=== PATIENT | female | born 1930 | race Asian ===

== ENCOUNTER 2018-08-31 18:27 | Inpatient (IN) | payer OTHER, MEDICAID ==
[~2018-08-31] VITALS: Ht 154.9 cm; Wt 61.5 kg
[~2018-08-31 18:27] MED LIST: AMLO5TAB4 PO; CALC-939 PO; DONE10TA44 PO; FURO-150 PO; MEGE40TA PO; MELO15TA13 PO; MEMA10TA PO; MEMA7CAP PO; NEU100 PO; POTA10TA15 PO; RIVA15TA PO; THIO10TA PO
--- NOTE | 2018-08-31 18:27 | NUR ---
Arrived via [facility] for altered mental status, with black diarrhea for 3 days. Patient has been unable to swallow x 2 days. Patient was worked u[p for this two days ago and was discharged home today. Patient is verbal and confused at baseline and is now non-verbal. Placed in room 1. Placed on management specialist, blood pressure machine and pulse oximeter. To gown for exam. Side rails up. Report given to Christopher NATHAN.
[2018-08-31 18:30] VITALS: BP_SYST 125
[2018-08-31] MEDS ORDERED: NS 1000 ML IV.SOLN IV ONE (18:30)
[2018-08-31] MEDS ORDERED: NACL 0.9% 1,000 ML IV ONE (18:30)
[2018-08-31] MEDS ORDERED: methylPREDNISolone SOD SUCC/PF 62.5 MG/ML VIAL IVP ONE (19:00)
[2018-08-31] MEDS ORDERED: ALBUTEROL SULFATE 0.083% 2.5 MG/3 ML VIAL.NEB IH ONE (19:00)
[2018-08-31] MEDS ORDERED: IPRATROPIUM BROM 0.5 MG/2.5 ML VIAL.NEB (ATROVENT) IH ONE (19:00)
[2018-08-31] MEDS ORDERED: cefTRIAXone 1 GM IVPB PREMIX 50 ML IV ONE (19:00)
--- NOTE | 2018-08-31 19:20 | NUR ---
Dr. Zaman bedside for Pt eval
--- NOTE | 2018-08-31 19:25 | NUR ---
Pt taken to Radiology, in stable condition. According to family still altered from Pt's baseline
--- NOTE | 2018-08-31 19:45 | NUR ---
Pt back from Radiology, well tolerated
[2018-08-31 20:24] LABS: BASOPHILS % (AUTO) 0.3 % (0.0-2.0); EOSINOPHILS # (AUTO) 0.1 K/uL (0.0-0.4); EOSINOPHILS % (AUTO) 0.7 % (0.0-4.0); LYMPHOCYTES # (AUTO) 2.8 K/uL (1.0-5.5); LYMPHOCYTES % (AUTO) 35.2 % (20.5-51.5); MEAN CORPUSCULAR HEMOGLOBIN 33 pg (27-31); MEAN CORPUSCULAR HGB CONC 33 % (32-36); MEAN CORPUSCULAR VOLUME 100 fL (79.0-98.0); MONOCYTES # (AUTO) 0.4 K/uL (0.0-1.0); NEUTROPHILS # (AUTO) 4.7 K/uL (1.8-7.7); NEUTROPHILS % (AUTO) 58.8 % (40.0-70.0); PLATELET COUNT (AUTO) 183 K/uL (130-430); RED CELL DISTRIBUTION WIDTH 14.6 % (9.0-15.0)
--- NOTE | 2018-08-31 20:30 | NUR ---
Pt VSS, no s/s of acute distress. Resting on gurney with rails up
[2018-08-31 20:37] LABS: HEMATOCRIT 17.4 % (36-48); RED BLOOD CELL COUNT(AUTO) 1.73 MIL/uL (4.2-6.2)
[2018-08-31 20:48] LABS: ANION GAP 3 (5-15); CALCIUM 8.8 mg/dL (8.4-11.0); CHLORIDE 112 mmol/L (98-107); GLUCOSE 112 mg/dL (70-99); SODIUM SERUM 141 mmol/L (136-145); UREA NITROGEN, BLOOD 40 mg/dL (8-21)
[2018-08-31 20:52] LABS: ALANINE AMINOTRANSFERASE 13 U/L (12-78); ALBUMIN 2.7 g/dL (3.4-4.8); AMYLASE 49 U/L (0-100); ASPARTATE AMINOTRANSFERASE 15 U/L (10-37); LIPASE 97 U/L (73-393); TOTAL BILIRUBIN 0.5 mg/dL (0.0-1.0)
[2018-08-31 21:00] LABS: PROTHROMBIN TIME 9.8 SECS (9.5-12.5)
[2018-08-31 21:05] LABS: ALCOHOL, BLOOD < 3 mg/dL (<10)
--- NOTE | 2018-08-31 21:30 | NUR ---
2 units PRBC ordered with Blood bank. Hgb 5.8, Dr. Zaman aware
--- NOTE | 2018-08-31 22:15 | NUR ---
Pt's family states "Pt is more awake than before"
[2018-08-31] MEDS ORDERED: PANTOPRAZOLE SODIUM 80 MG in NS 100 ML IV ONE (23:00)
[2018-08-31] MEDS ORDERED: PANTOPRAZOLE SODIUM 40 MG/VIAL (PROTONIX) ONE (23:16)
--- NOTE | 2018-08-31 23:18 | NUR ---
Patient will be admitted to care of Dr. Cristobal. Admitted to Telemetry unit. Will go to room 133A. Belongings list completed. Summary report printed. Report will be given at bedside.
--- NOTE | 2018-08-31 23:18 | NUR ---
ADMISSION NOTE Received patient from ER via [facility], received report from JAC RIVAS. Patient admitted with diagnosis of LOWER GI BLEED. Patient and family oriented to hospital routine, call light, toileting and safety-patient verbalized understanding.
--- NOTE | 2018-08-31 23:18 | NUR ---
Transfer to Telemetry via ACLS protocol. Licensed nurse present. IV present no signs or symptoms of infiltration.
[2018-08-31 23:27] VITALS: BP_SYST 142
[2018-08-31] MEDS ORDERED: KCL 20 mEq in D5/0.45NS 1000mL 1,000 ML IV ONE (23:48)
[2018-09-01] VITALS (11 sets, daily range): BP systolic 122–151
--- NOTE | 2018-09-01 | NUR ---
IV PLACEMENT: # 20 gauge angiocath placed to right forearm. Use of asceptic technique. Opsite placed over site. Blood return noted. Flushed with normal saline. No evidence of infiltration noted. Patient tolerated well. Will initiate blood transfusion via this IV site.
--- NOTE | 2018-09-01 00:10 | NUR ---
BT INITIATION: Consent signed per family agreeing to administration of blood. Blood has been type and crossmatched. Blood sent from blood bank. Information on unit of blood checked against patient wristband at bedside by two nurses. All information matches. Patient or responsible constitution party informed of potential complications associated with blood transfusion. Informed of possible transfusion reaction symptoms. Aware of need to notify nurse at once of itching, shortness of breath, flushing, feeling of impending doom, or other symptoms not previously present. Vital signs taken within 5 minutes prior to initiation of transfusion. RN will remain with patient for first 15 minutes of transfusion at which time vital signs will be re-assessed.
[2018-09-01] MEDS: KCL 20 mEq in D5/0.45NS 1000mL 1,000 ML IV SCH ×3 (00:43→23:22)
--- NOTE | 2018-09-01 01:45 | NUR ---
IV PLACEMENT: # 22 gauge angiocath placed to left hand. Use of asceptic technique. Opsite placed over site. Blood return noted. Flushed with normal saline. No evidence of infiltration noted. Patient tolerated well. Will initiate D5 1/2 + KCL 20 MEQ as ordered via this IV site.
--- NOTE | 2018-09-01 02:50 | NUR ---
BT INITIATION (2nd of 2 units): Consent signed per family agreeing to administration of blood. Blood has been type and crossmatched. Blood sent from blood bank. Information on unit of blood checked against patient wristband at bedside by two nurses. All information matches. Patient or responsible libertarian informed of potential complications associated with blood transfusion. Informed of possible transfusion reaction symptoms. Aware of need to notify nurse at once of itching, shortness of breath, flushing, feeling of impending doom, or other symptoms not previously present. Vital signs taken within 5 minutes prior to initiation of transfusion. RN will remain with patient for first 15 minutes of transfusion at which time vital signs will be re-assessed.
--- NOTE | 2018-09-01 05:07 | NUR ---
BT complete (2nd of 2 units): Blood transfusion completed. Vitals WNL. IV site flushed with NS, resumed IVF via right forearm IV site. Will continue to monitor.
--- NOTE | 2018-09-01 05:21 | NUR ---
CONSULTATION PAGED/CALLED Reason for Consultation: LOWER GI BLEED Person Who was Notified: HUGH Consulting Physician: DR. MONTALVO; PROCESSING REP- DR. BOCANEGRA Poll Clerk Specialty: GI Ordering Physician: DR. MANZANARES
--- NOTE | 2018-09-01 06:04 | NUR ---
Closing note: Patient is resting in bed, no distress. Granddaughter Kiana at bedside. IV fluids infusing well to right forearm IV site. All needs met. Safety and fall precautions observed. Will endorse to trinh NATHAN.
--- NOTE | 2018-09-01 07:08 | NUR ---
Nutrition Update Ifeanyi Scale 14 noted. Pt admitted for Lower Gastrointestinal Bleed Diet: Clear liquid BMI: 28 kg/m2 RD to follow per nutrition care standards.
--- NOTE | 2018-09-01 08:00 | NUR ---
initial notes rec patient asleep but arousble to stimuli. family members at bedside round the clock. resp easy and unlabored. no sob noted. bed to the lowest position and side rails up and locked. call light within reached, family at bedside.
[2018-09-01] MEDS: PANTOPRAZOLE SODIUM 40 MG/VIAL (PROTONIX) IVP SCH ×2 (08:42→20:52)
[2018-09-01 09:14] LABS: BASOPHILS % (AUTO) 0.1 % (0.0-2.0); HEMATOCRIT 27.8 % (36-48); HEMOGLOBIN 9.2 g/dL (12.0-16.0); LYMPHOCYTES # (AUTO) 0.8 K/uL (1.0-5.5); LYMPHOCYTES % (AUTO) 10.3 % (20.5-51.5); MEAN CORPUSCULAR HEMOGLOBIN 32 pg (27-31); MEAN CORPUSCULAR HGB CONC 33 % (32-36); MONOCYTES # (AUTO) 0.1 K/uL (0.0-1.0); MONOCYTES % (AUTO) 0.9 % (1.7-9.3); NEUTROPHILS # (AUTO) 6.8 K/uL (1.8-7.7); NEUTROPHILS % (AUTO) 88.7 % (40.0-70.0); PLATELET COUNT (AUTO) 162 K/uL (130-430); RED BLOOD CELL COUNT(AUTO) 2.92 MIL/uL (4.2-6.2); RED CELL DISTRIBUTION WIDTH 16.2 % (9.0-15.0); WHITE BLOOD COUNT (AUTO) 7.6 K/uL (4.8-10.8)
[2018-09-01 09:18] LABS: MEAN CORPUSCULAR VOLUME 95 fL (79.0-98.0)
[2018-09-01 09:33] LABS: ALANINE AMINOTRANSFERASE 16 U/L (12-78); ALBUMIN 2.4 g/dL (3.4-4.8); ANION GAP 10 (5-15); ASPARTATE AMINOTRANSFERASE 15 U/L (10-37); CHLORIDE 112 mmol/L (98-107); CREATININE 1.45 mg/dL (0.55-1.30); GLUCOSE 166 mg/dL (70-99); POTASSIUM 4.6 mmol/L (3.5-5.1); SODIUM SERUM 145 mmol/L (136-145); TOTAL BILIRUBIN 0.6 mg/dL (0.0-1.0); UREA NITROGEN, BLOOD 31 mg/dL (8-21)
[2018-09-01 10:48] LABS: HEMOGLOBIN 5.8 g/dL (12.0-16.0)
--- NOTE | 2018-09-01 13:55 | NUR ---
rounds seen by dr peters at bedside . no sob noted. alec at bedside.
--- NOTE | 2018-09-01 14:00 | NUR ---
rounds seen by dr sutherland and with orders. sleeps at intervals.
[2018-09-01] MEDS ORDERED: LevALBUTEROL HCL 1.25 MG/0.5 ML *CONC.* VIAL.NEB (XOPENEX CONC.) INH PRN (14:45)
[2018-09-01] MEDS: LevALBUTEROL HCL 1.25 MG/0.5 ML *CONC.* VIAL.NEB (XOPENEX CONC.) INH SCH ×2 (15:00→23:08)
--- NOTE | 2018-09-01 18:39 | NUR ---
closing notes daughter at bedside and signed the consent for egd in am. explained re npo post midnight. no bleeding noted. no sob noted. sleeps at intervals. bed to the lowest positiona nd side rails up and locked.
--- NOTE | 2018-09-01 19:10 | NUR ---
OPENING NOTES Bedside report received from dayshift nurse. Patient received lying in bed, eyes closed, appears to be asleep. No s/s of acute distress noted. Breathing even and unlabored. IV site patent, no signs of infiltration or infection noted. IVF not infusing at this time. Patient's two sons at bedside. Call light with patient. SCDs attached and operating. Bed alarm on. Will continue to monitor.
--- NOTE | 2018-09-01 21:00 | NUR ---
INCONTINENT CARE/ BED BATH [employer] EXCHANGE REPAIRER conducting incontinent care and bed bath at this time, per family members request. Patient tolerating procedure well. No signs of discomfort noted. Chest rise and fall even bilaterally. Call light with patient. Will continue to monitor.
--- NOTE | 2018-09-01 23:00 | NUR ---
ROUNDS/NPO Patient in bed awake. Patient daughter is at bedside. Patient and family member reminded that the patient will be NPO at midnight. Family member, verbalized understanding. No signs of discomfort noted at this time. Chest rise and fall even bilaterally. IVF infusing well. Call light with patient. Bed alarm on. Will continue to monitor.
--- NOTE | 2018-09-02 01:00 | NUR ---
ROUNDS Patient in bed sleeping at this time. No signs of discomfort noted. Chest rise and fall even bilaterally. IVF infusing well. Call light with patient. Bed alarm on. Will continue to monitor.
--- NOTE | 2018-09-02 03:00 | NUR ---
ROUNDS Patient in bed sleeping. No s/s of acute distress noted. Breathing even and unlabored. IVF infusing well. Call light with patient. Bed alarm on. Will continue to monitor.
[2018-09-02 04:50] VITALS: BP_SYST 132
--- NOTE | 2018-09-02 05:00 | NUR ---
ROUNDS Patient in bed sleeping comfortably. No signs of discomfort noted. Chest rise and fall even bilaterally. IVF infusing well. Call light with patient. Will continue to monitor.
--- NOTE | 2018-09-02 06:19 | NUR ---
CLOSING NOTES Patient in bed sleeping. No s/s of acute distress noted. Breathing is even and unlabored. IVF infusing well. IV site patent, no signs of infiltration or infection noted. SCDs attached and operating. HOB slightly raised. No active bleeding noted. Skin warm and dry to touch. All needs met throughout shift. Fall and safety precautions maintained throughout shift. Will continue to monitor until patient care is endorsed to oncoming dayshift nurse.
[2018-09-02] MEDS: LevALBUTEROL HCL 1.25 MG/0.5 ML *CONC.* VIAL.NEB (XOPENEX CONC.) INH SCH ×3 (07:00→23:01)
[2018-09-02] MEDS ORDERED: MEPERIDINE HCL/PF 100 MG/ML AMP ONE (07:06)
[2018-09-02] MEDS: MIDAZOLAM HCL 5 MG/5 ML VIAL ONE ×2 (07:32→07:34)
[2018-09-02] MEDS ORDERED: SIMETHICONE 40 MG/0.6 ML ML ONE (07:52)
[2018-09-02] MEDS: PANTOPRAZOLE SODIUM 40 MG/VIAL (PROTONIX) IVP SCH ×2 (09:06→21:48)
[2018-09-02 09:19] LABS: BASOPHILS % (AUTO) 0.3 % (0.0-2.0); EOSINOPHILS # (AUTO) 0.1 K/uL (0.0-0.4); EOSINOPHILS % (AUTO) 1.1 % (0.0-4.0); HEMOGLOBIN 8.3 g/dL (12.0-16.0); LYMPHOCYTES # (AUTO) 1.1 K/uL (1.0-5.5); LYMPHOCYTES % (AUTO) 13.8 % (20.5-51.5); MEAN CORPUSCULAR HEMOGLOBIN 32 pg (27-31); MEAN CORPUSCULAR HGB CONC 33 % (32-36); MEAN CORPUSCULAR VOLUME 97 fL (79.0-98.0); MONOCYTES # (AUTO) 0.5 K/uL (0.0-1.0); MONOCYTES % (AUTO) 6.1 % (1.7-9.3); NEUTROPHILS # (AUTO) 6.5 K/uL (1.8-7.7); NEUTROPHILS % (AUTO) 78.7 % (40.0-70.0); PLATELET COUNT (AUTO) 170 K/uL (130-430); RED BLOOD CELL COUNT(AUTO) 2.59 MIL/uL (4.2-6.2); RED CELL DISTRIBUTION WIDTH 16.8 % (9.0-15.0); WHITE BLOOD COUNT (AUTO) 8.3 K/uL (4.8-10.8)
--- NOTE | 2018-09-02 09:30 | NUR ---
initial notes pt back from gi lab. asleep but arousable to stimuli. ivf infusing well on the r forearm. no infiltration noted. resp easy and unlabored. no sob noted. bed to the lowest position and side rails up and locked. call light within reached and daughter at bedside with patient.
[2018-09-02 09:40] LABS: ALANINE AMINOTRANSFERASE 15 U/L (12-78); ALBUMIN 2.3 g/dL (3.4-4.8); ANION GAP 7 (5-15); ASPARTATE AMINOTRANSFERASE 12 U/L (10-37); CALCIUM 7.7 mg/dL (8.4-11.0); CHLORIDE 113 mmol/L (98-107); CREATININE 1.24 mg/dL (0.55-1.30); GLUCOSE 103 mg/dL (70-99); POTASSIUM 3.8 mmol/L (3.5-5.1); SODIUM SERUM 145 mmol/L (136-145); TOTAL BILIRUBIN 0.7 mg/dL (0.0-1.0); UREA NITROGEN, BLOOD 21 mg/dL (8-21)
[2018-09-02 12:45] VITALS: BP_SYST 124
--- NOTE | 2018-09-02 15:12 | NUR ---
Dietitian Recommendations * Recommend 2 gm Na, mechanical soft diet w/ Ensure Enlive BID (ONS provides an additional 700 kcal/day and 40 gm protein/day) LP, RD Please refer to Nutrition Assessment for details.
[2018-09-02 16:39] VITALS: BP_SYST 126
--- NOTE | 2018-09-02 19:40 | NUR ---
OPENING NOTE RECEIVED CARE OF PT. PT IS RESTING IN BED WITH FAMILY AT BEDSIDE. NO S/S OF ACUTE DISTRESS, BREATHING IS UNLABORED TO ROOM AIR. PT AND PT'S FAMILY ORIENTED TO USE OF THE CALL LIGHT AND ENCOURAGED TO CALL FOR ANY ASSISTANCE. SAFETY PRECAUTIONS ARE IN PLACE: BED IS LOCKED IN LOWEST POSITION, CALL LIGHT IS WITH PT, SIDE RAILS UP X2, BED ALARM ON, CLOSE TO NURSES STATION. WILL MONITOR.
[2018-09-02 20:00] VITALS: BP_SYST 149
--- NOTE | 2018-09-02 21:48 | NUR ---
SCHEDULED PROTONIX PT GIVEN SCHEDULED PROTONIX VIA IVP. IV IS PATENT AND FLUSHES WELL, NO S/S OF INFILTRATION AT IV SITE. MEDICATION ACTION AND POTENTIAL SIDE EFFECTS EXPLAINED TO PT. SAFETY PRECAUTIONS MAINTAINED. WILL MONITOR.
--- NOTE | 2018-09-02 22:25 | NUR ---
INCONTINENCE CARE PT INCONTINENT OF URINE. PT CLEANED AND PROVIDED WITH FRESH LINENS. PT REPOSITIONED WITH PILLOW SUPPORT. PT TOLERATED WELL. NO S/S OF DISTRESS. SAFETY MAINTAINED. WILL MONITOR.
--- NOTE | 2018-09-03 00:45 | NUR ---
CLEANED/REPOSITIONED PT INCONTINENT OF URINE. PT CLEANED AND REPOSITIONED WITH HELP FROM JAKE VIEYRA. PT TOLERATED WELL, BREATHING IS UNLABORED TO ROOM AIR. NO S/S OF ACUTE DISTRESS NOTED. SAFETY PRECAUTIONS REMAIN IN PLACE. WILL MONITOR.
[2018-09-03 02:31] VITALS: BP_SYST 146
--- NOTE | 2018-09-03 02:55 | NUR ---
RN ROUNDS: PT RESTING IN BED WITH EYES CLOSED. VISIBLE SYMMETRICAL RISE AND FALL OF CHEST, BREATHING IS UNLABORED TO ROOM AIR. PT'S DAUGHTER IS AT BEDSIDE. NO S/S OF ACUTE DISTRESS. SAFETY PRECAUTIONS ARE IN PLACE. WILL MONITOR.
--- NOTE | 2018-09-03 04:30 | NUR ---
RN ROUNDS: PT RESTING IN BED WITH EYES CLOSED, WITH HER DAUGHTER AT BEDSIDE . VISIBLE SYMMETRICAL RISE AND FALL OF CHEST, BREATHING IS EVEN AND EFFORTLESS TO ROOM AIR.NO S/S OF ACUTE DISTRESS, NO SOB NOTED. SAFETY PRECAUTIONS ARE IN PLACE, CALL LIGHT IS WITH PT. WILL MONITOR.
--- NOTE | 2018-09-03 06:21 | NUR ---
CLOSING NOTE PT RESTING IN BED, IN NO ACUTE DISTRESS, PT SMILING WHEN SPOKEN TO. PT'S DAUGHTER IS AT BEDSIDE. INCONTINENCE CARE RENDERED WITH THE ASSISTANCE OF JAKE VIEYRA, AND PT WAS REPOSITIONED. BREATHING IS UNLABORED TO ROOM AIR. SAFETY PRECAUTIONS MAINTAINED. ALL NEEDS MET DURING SHIFT. WILL CONTINUE TO MONITOR UNTIL PT CARE IS ENDORSED TO DAY SHIFT RN.
--- NOTE | 2018-09-03 07:30 | NUR ---
Opening note Patient resting in bed, A/O x 2, no complaints of pain. No SOB. No nausea, no vomiting noted. IV site patent, and intact. No bleeding noted. On aspiration, and safety precautions, HOB kept elevated, bed alarm on, bed in lowest position, call light within reach. Patient in stable condition. Will continue to monitor.
[2018-09-03] MEDS: LevALBUTEROL HCL 1.25 MG/0.5 ML *CONC.* VIAL.NEB (XOPENEX CONC.) INH SCH ×2 (07:40→15:54)
[2018-09-03 08:31] VITALS: BP_SYST 165
[2018-09-03 09:21] LABS: BASOPHILS % (AUTO) 0.5 % (0.0-2.0); EOSINOPHILS # (AUTO) 0.1 K/uL (0.0-0.4); EOSINOPHILS % (AUTO) 1.2 % (0.0-4.0); HEMATOCRIT 30.7 % (36-48); HEMOGLOBIN 10.2 g/dL (12.0-16.0); LYMPHOCYTES # (AUTO) 1.9 K/uL (1.0-5.5); LYMPHOCYTES % (AUTO) 20.2 % (20.5-51.5); MEAN CORPUSCULAR HEMOGLOBIN 32 pg (27-31); MEAN CORPUSCULAR HGB CONC 33 % (32-36); MEAN CORPUSCULAR VOLUME 97 fL (79.0-98.0); MONOCYTES # (AUTO) 0.5 K/uL (0.0-1.0); MONOCYTES % (AUTO) 5.5 % (1.7-9.3); NEUTROPHILS # (AUTO) 6.7 K/uL (1.8-7.7); NEUTROPHILS % (AUTO) 72.6 % (40.0-70.0); PLATELET COUNT (AUTO) 208 K/uL (130-430); RED BLOOD CELL COUNT(AUTO) 3.19 MIL/uL (4.2-6.2); RED CELL DISTRIBUTION WIDTH 16.2 % (9.0-15.0); WHITE BLOOD COUNT (AUTO) 9.2 K/uL (4.8-10.8)
[2018-09-03 09:30] LABS: ANION GAP 9 (5-15); CALCIUM 8.8 mg/dL (8.4-11.0); CHLORIDE 109 mmol/L (98-107); CREATININE 1.23 mg/dL (0.55-1.30); GLUCOSE 133 mg/dL (70-99); POTASSIUM 3.6 mmol/L (3.5-5.1); SODIUM SERUM 141 mmol/L (136-145); UREA NITROGEN, BLOOD 18 mg/dL (8-21)
--- NOTE | 2018-09-03 09:30 | NUR ---
Rounds Patient note with BP of 168/94, no complaints of pain. No acute distress noted. paged Dr. Cole.
[2018-09-03 09:35] LABS: ALANINE AMINOTRANSFERASE 18 U/L (12-78); ALBUMIN 2.9 g/dL (3.4-4.8); ASPARTATE AMINOTRANSFERASE 15 U/L (10-37); TOTAL BILIRUBIN 0.8 mg/dL (0.0-1.0)
--- NOTE | 2018-09-03 09:45 | NUR ---
Dr. Cole called back New order for BP medication noted and carried out.
[2018-09-03] MEDS: PANTOPRAZOLE SODIUM 40 MG/VIAL (PROTONIX) IVP SCH ×2 (09:48→20:12)
[2018-09-03] MEDS ORDERED: amLODIPine BESYLATE 10 MG TABLET PO ONE (10:00)
--- NOTE | 2018-09-03 10:30 | NUR ---
BP medication held Patient resting in bed, sleeping. BP 96/57, BP medication held. patient in stable condition.
[2018-09-03 11:34] VITALS: BP_SYST 99
--- NOTE | 2018-09-03 13:50 | NUR ---
Rounds Patient resting in bed. No complaints of pain. No SOB noted. Patient in stable condition. No nausea, no vomiting noted.
[2018-09-03 15:39] VITALS: BP_SYST 144
--- NOTE | 2018-09-03 16:30 | NUR ---
Rounds Patient resting in bed, no complaints of pain. No cough, no congestion noted. Iv patent, and intact. No complaints of pain. Patient in stable condition.
--- NOTE | 2018-09-03 18:45 | NUR ---
Closing note Patient resting in bed, A/O x 2, no complaints of pain. No SOB. No nausea, no vomiting noted. IV site patent, and intact. No bleeding noted. On aspiration, and safety precautions, HOB kept elevated, bed alarm on, bed in lowest position, call light within reach. Patient in stable condition.All needs met.
--- NOTE | 2018-09-03 19:25 | NUR ---
OPENING NOTE RECEIVED CARE OF PT. PT IS RESTING IN BED WITH FAMILY AT BEDSIDE. NO S/S OF ACUTE DISTRESS NOTED, BREATHING IS UNLABORED TO ROOM AIR. IV IS SALINE LOCKED. PT AND PT'S FAMILY ORIENTED TO USE OF THE CALL LIGHT AND ENCOURAGED TO CALL FOR ANY ASSISTANCE. SAFETY PRECAUTIONS ARE IN PLACE: BED IS LOCKED IN LOWEST POSITION, CALL LIGHT IS WITH PT, SIDE RAILS UP X2, BED ALARM ON, CLOSE TO NURSES STATION. WILL MONITOR.
--- NOTE | 2018-09-03 19:40 | NUR ---
ROUNDS DR. MANZANARES AT NURSES STATION, TO SEE AND EXAMINE PT AND PT'S FAMILY.
[2018-09-03 20:00] VITALS: BP_SYST 127
--- NOTE | 2018-09-03 20:37 | NUR ---
DISCHARGE PT RESTING IN BED, VSS, WITH FAMILY AT BEDSIDE. DISCHARGE INSTRUCTIONS EXPLAINED TO PT AND PT'S FAMILY. UNDERSTANDING VERBALIZED BY PT'S FAMILY. IV DISCONTINUED. PT WHEELED OUTSIDE TO PRIVATE [employer] VIA WHEELCHAIR BY JARRELL MILLER.
[2018-09-04] MEDS ORDERED: amLODIPine BESYLATE 10 MG TABLET PO SCH (09:00)
== END 2018-09-03 20:37 | disposition home or self-care (01) | DRG 378 ==
LOC: SED 18:27 → SMU 22:59 → STU 23:18 → SMU 09-03 00:46
PROVIDERS: ADMIT Family Medicine; ATTEND Family Medicine
PROC: 30233N1 Transfusion of Nonautologous Red Blood Cells into Peripheral Vein, Percutaneous Approach (ICD-10-PCS; principal; 2018-08-31)
PROC: 0DB68ZX Excision of Stomach, Via Natural or Artificial Opening Endoscopic, Diagnostic (ICD-10-PCS; 2018-09-02)
DX: K26.4 Chronic or unspecified duodenal ulcer with hemorrhage (principal); E44.0 Moderate protein-calorie malnutrition; J90 Pleural effusion, not elsewhere classified; D50.0 Iron deficiency anemia secondary to blood loss (chronic); F03.90 Unspecified dementia, unspecified severity, without behavioral disturbance, psychotic disturbance, mood disturbance, and anxiety; I10 Essential (primary) hypertension; K29.70 Gastritis, unspecified, without bleeding; I48.0 Paroxysmal atrial fibrillation; M19.90 Unspecified osteoarthritis, unspecified site; Z68.25 Body mass index [BMI] 25.0-25.9, adult; Z79.01 Long term (current) use of anticoagulants; Z79.899 Other long term (current) drug therapy
CPT/HCPCS: 36415; 36600; 43239; 70450-TC; 71045; 80053; 82150-TC; 82272; 82550-TC; 82803-TC; 83605; 83690-TC; 83880; 84484; 85025; 85610-TC; 85730-TC; 86886; 86900; 86901; 86920; 87040-TC; 87081; 88305; 88312; 88313; 93005; 94640; 96361; 96365; 96375; 99285; C9113; G0378; G0482; J0696; J2175; J2250; J2930; J7040; J7612; J7613; P9021